=== PATIENT | female | born 1995 | race Caucasian/White ===

== ENCOUNTER 2016-07-24 15:50 | Emergency (ER) | payer MEDICAID ==
[2016-07-24 16:13] VITALS: BP 120/63; PULSE 62; RESP 18; TEMP 98.1; O2SAT 97
--- NOTE | 2016-07-24 17:53 | UCPHY ---
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 Review of systems General no fever no chills no weakness HEENT no eye pain no eye discharge. No eye redness, no sore throat Respiratory no cough, no shortness of breath Cardiac no chest pain, no peripheral edema GI no abdominal pain, no diarrhea, no constipation, no nausea, no vomiting no flank pain, no hematuria, no dysuria Musculoskeletal positive myalgias, positive joint pain Heme no easy bruising, no easy bleeding Endo no polyuria, no polydipsia Skin no rashes, no pruritus Neuro no syncope, no dizziness, no headaches Psych is no suicidal ideation, no homicidal ideation Past Medical/Surgical History: Asthma Social History: Works as a DJ Smoking Status: Never smoked Physical Exam: Alert and oriented in no acute distress nontoxic appearance, afebrile Atraumatic normocephalic Neck no JVD Lungs clear to auscultation, no respiratory distress Heart regular rate and rhythm Extremities no cyanosis clubbing edema Right wrist-no evidence ecchymosis, no swelling, diffusely tender, full range of motion of digits wrist and elbow as well as shoulder A good capillary refill, sensation intact Constitutional: Initial Vital Signs Temperature (C) 36.7 C 07/24/16 16:10 Heart Rate 62 07/24/16 16:10 Respiratory Rate 18 07/24/16 16:10 Blood Pressure 120/63 07/24/16 16:10 O2 Sat (%) 97 07/24/16 16:10 O2 Delivery Mode Room Air Allergies/Adverse Reactions: adhesive [Adhesive] Allergy (Intermediate, Verified 11/22/15 17:21) RASH/IRRITATION Home Medications: Medication Instructions Recorded Naproxen 09/04/15 Albuterol 11/22/15 Medical Decision Making - Data Points Medications Given: Discontinued Medications Ibuprofen (Motrin) 600 mg PO ONCE ONE Stop: 07/24/16 17:57 Last Admin: 07/24/16 18:07 Dose: 600 mg Departure - Departure Disposition: Home, Routine, Self-Care Clinical Impression: Right wrist sprain Condition: Good Instructions: Wrist Sprain (ED) Additional Instructions: Rest, ice, elevate may take ibuprofen or acetaminophen as needed for pain. If wrist is not improving follow up with Orthopedics. Referrals: NONE *PRIMARY CARE P,. [Primary Care Provider] - As per Instructions Galen Buckley MD [Medical Doctor] - As per Instructions - PQRS PQRS Measurement: na
[2016-07-24] MEDS ORDERED: IBUPROFEN 200 MG TAB PO ONE (17:56)
== END 2016-07-24 18:08 | disposition home or self-care (01) ==
LOC: CED 15:50
DX: S63.501A Unspecified sprain of right wrist, initial encounter (principal); W01.0XXA Fall on same level from slipping, tripping and stumbling without subsequent striking against object, initial encounter
CPT/HCPCS: 73110-PO; G0463-PO; L3908

== ENCOUNTER → 2016-12-25 | Outpatient (CLI) | payer MEDICAID | LOC: CIMAGING 16:37 | PROVIDERS: ATTEND Family Medicine | DX: M25.531 Pain in right wrist (principal) | CPT/HCPCS: 73110-PO ==

== ENCOUNTER → 2017-01-11 | Outpatient (CLI) | payer MEDICAID | LOC: CIMAGING 15:52 | PROVIDERS: ATTEND Family Medicine | DX: S69.91XA Unspecified injury of right wrist, hand and finger(s), initial encounter (principal) | CPT/HCPCS: 73110-PO ==

== ENCOUNTER → 2017-05-01 | Outpatient (CLI) | payer MEDICAID | LOC: CIMAGING 12:40 | PROVIDERS: ATTEND Family Medicine | DX: M79.642 Pain in left hand (principal); Z3A.17 17 weeks gestation of pregnancy | CPT/HCPCS: 73130-PO ==

== ENCOUNTER 2017-08-27 05:43 | Observation (INO) | payer MEDICAID ==
[2017-08-27] MEDS ORDERED: ONDANSETRON 4 MG/2 ML VIAL IVP PRN (06:24)
[2017-08-27] MEDS ORDERED: DIPHENOXYLATE/ATROPINE LOMOTIL 1 TAB PO PRN (06:24)
[2017-08-27 06:26] LABS: PLATELET COUNT 384 10^3/uL (150-400)
[2017-08-27] MEDS ORDERED: LR 1,000 ML IV ONE (06:30)
[2017-08-27] MEDS ORDERED: LR 1,000 ML IV SCH (06:30)
--- NOTE | 2017-08-27 07:52 | OBPROG ---
Labor Progress Note Assessment/Plan: Assessment:cat 1 fhr no further vomiting or diarrhea resting specific gravity 1.020 / trace protein , no ketones #2 iv fluid to infuse before discharge denies pain denies leaking bleeding and cramping feeling positive movement encouraged bland clear liquid to dry diet x 24h elevated white count 16 anemic taking iron routinely will hold PNV and iron for a few days until feeling better afebrile vs wnl Plan:discharge to home with instructions fu in the office on sunday call for appt. Discussed reasons to return before. Will send home with kevin ODT for nausea and vomiting. Patient and family ok with POC 08/27/17 07:48 08/27/17 07:53 Subjective/Intrapartum Course: 08/27/17 07:47 Resting quietly , snoring. Per mom this is a change. Objective: 08/27/17 06:15 08/27/17 06:15 - FHR Assessment Montiel FHR (bpm): 135 FHR Pattern Variability: Moderate FHR Category: 1 - Physical Exam General Appearance: WD/WN, alert, no apparent distress Respiratory: chest non-tender, lungs clear, normal breath sounds Cardiac/Chest: regular rate, rhythm Abdomen: normal bowel sounds Extremities: normal range of motion, North's sign (negaive bilaterally) DTR- Lower Extremities: Knee (R): 1+, Knee (L): 1+ (no clonus) Skin: normal color, warm/dry Neuro/Psych: no motor/sensory deficits, alert, normal mood/affect, oriented x 3 ICD10 Worksheet Patient Problems: Problems Problem Status Onset 34 weeks nausea and diarrhea Acute
--- NOTE | 2017-08-27 08:37 | GHP ---
[f rep st] HISTORY AND PHYSICAL DATE OF ADMISSION: 08/27/2017 SUBJECTIVE: Patient is a 21-year-old, 1, para 0, with an EDC of 10/08/2017, which gives her a gestational age of 34 weeks, came in with complaint of nausea, vomiting, diarrhea since 08/27/2016 at midnight as well as decreased movement. Patient has just recently transferred care to [facility]. PAST MEDICAL HISTORY: Patient states that she has a history of hypothyroid, PTSD, anxiety, obsessive -compulsive disorder, as well as previous history of Hodgkin lymphoma, which has been in remission si nce she was 12 years old. PAST SURGICAL HISTORY: Benign. MEDICATIONS: Levothyroxine 25 mcg, vitamins, and iron 1 p.o. daily. HISTORY: Previous previa that has since resolved, anemia. SOCIAL HISTORY: A 21-year-old primip. Lives with her mother. Denies tobacco use. Denies drug use. GYNECOLOGICAL HISTORY: Benign. PHYSICAL ASSESSMENT: GENERAL: Patient is very sleepy. Denies leaking, bleeding, or cramping. Stat es now feeling positive movement. LUNGS: Clear bilaterally. ABDOMEN: Bowel sounds are posit obdulia in all 4 quadrants. HEART: Heart rate is regular and rhythmic. NEUROLOGIC: DTRs are 1+ bilate rally with no clonus. Homans sign is negative. PELVIC: No contractions noted on the monitor. Yadira ent states was feeling intestinal cramping when she first came in. Multiple bouts of diarrhea. Mult iple bouts of vomiting since midnight. Zofran 4 mg given IV at 07:04. 1 L of fluid has infused with the 2nd one running at 250 per hour. Patient states now feeling better and feeling routine mo vement. LABS: WBCs are 16.4, hematocrit is 32.6. All other labs are within normal limits. Patient is afebr ile. PLAN OF CARE: Zofran ODT p.r.n. for nausea and vomiting. Follow up on Sunday for reassura nce. Verbalized understandings of reasons to return earlier; leaking, bleeding, cramping, baby not m oving, continued diarrhea, nausea and vomiting. For 24 hours, a bland diet as well as clear liquid. Patient and mother verbalized understanding of plan of care. /[id number]/MODL
== END 2017-08-27 09:30 | disposition home or self-care (01) ==
LOC: FLD 05:43
PROVIDERS: ADMIT Obstetrics & Gynecology; ATTEND Obstetrics & Gynecology
DX: O21.2 Late vomiting of pregnancy (principal); O99.89 Other specified diseases and conditions complicating pregnancy, childbirth and the puerperium; Z3A.34 34 weeks gestation of pregnancy; Z85.71 Personal history of Hodgkin lymphoma
CPT/HCPCS: J2405

== ENCOUNTER 2017-09-07 18:58 | Observation (INO) | payer MEDICAID ==
--- NOTE | 2017-09-07 20:52 | SOAPPROG ---
SOAP Progress Note Assessment/Plan: Assessment: 21 yo G1 at 35w4d by 7 w US with abd and back pain, a small amount of spotting - all of which has resolved. No other signs of labor (2 ctxns in 1 hour), no cervical dilation. No ssx UTI. monitoring was reassuring. Plan: DC home. labor precautions reviewed. Suggest belly support belt. FU in office as scheduled in next week. 09/07/17 20:47 Subjective: Pt noted low back pain and intermittent abdominal pain, originally started at 0400, then resolved during the day, and started again late this afternoon. Currently, since she has been here over an hour, all of her discomfort has resolved. She did have a small amount of spotting late this afternoon, but none on her underwear here and is not wearing a pad. Good movement. Here with her mom and grandmother - who mention she is developmentally delayed in outside of the patient's room. Objective: 37.1 100 127/80 gen - pleasant gravid female in NAD CV - RRR chest - CTAB abd - soft, gravid, obese, nontender, no rebound or guarding. ext - 1+ edema, no calf tenderness SVE - Cl / thick / high / anterior, no blood on glove after check, no evidence of any bleeding on perineum. FHR - reactive, Cat 1, mod variability, no decels toco - 2 contractions in 1 hour - Time Spent With Patient Time Spent With Patient: 15 min spent with patient - face to face - Pending Discharge Pending Discharge Within 24 Hours: No Pending Discharge Within 48 Hours: No Pending Discharge Date: 09/07/17 Pending Discharge Time: 21:02 Physical Exam - Physical Exam EENT: PERRL/EOMI Neck: non-tender Respiratory: lungs clear Cardiac/Chest: regular rate, rhythm Skin: normal color Neuro/Psych: alert, normal mood/affect ICD10 Worksheet Patient Problems: Problems Problem Status Onset Abdominal pain during in third trimester Acute Low back pain during in third trimester Acute Low back pain during in third trimester Acute - ICD10 Problem Qualifiers (1) Low back pain during in third trimester (2) Low back pain during in third trimester (3) Abdominal pain during in third trimester
== END 2017-09-07 21:07 | disposition home or self-care (01) ==
LOC: FLD 18:58
PROVIDERS: ADMIT Hospitalist; ATTEND Hospitalist
DX: M54.5 Low back pain (principal); R10.9 Unspecified abdominal pain; R11.2 Nausea with vomiting, unspecified; Z3A.35 35 weeks gestation of pregnancy
CPT/HCPCS: 59025; G0378

== ENCOUNTER 2017-09-23 18:25 | Emergency (ER) | payer MEDICAID ==
--- NOTE | 2017-09-23 20:10 | EDPHY ---
H & P Time Seen by Provider: 09/23/17 18:45 HPI/ROS: CHIEF COMPLAINT: Right wrist pain History by patient HISTORY OF PRESENT ILLNESS: 21-year-old right-handed 38 week woman presents after she to in the day [place] at a movie theater landing on her right outstretched hand and also then rolling onto her left side. Initially she had some mild left upper quadrant pain. This has resolved since arrival here but she still complains of persistent right hand and wrist pain. She has had some ongoing persistent swelling of both her hands since she has been . She does not feel like his hands are more swollen than before. She denies hitting her head or any trauma trauma. She has felt the baby move since fall several times. There has been no vaginal discharge or bleeding. REVIEW OF SYSTEMS: As in HPI, and all other systems reviewed and are negative Smoking Status: Never smoked Physical Exam: General Appearance: Alert and no distress. Obese Head: Normocephalic, atraumatic Eyes: Pupils equal and round no injection. Extraocular movements are intact. Abdomen: Positive obese, gravid, soft, nondistended, nontender Musculoskeletal: Neck is supple and nontender. Extremities: Bilateral mild hand swelling, right wrist with full range of motion, positive right radial styloid tenderness, positive right snuffbox tenderness, no ulnar styloid tenderness, no metacarpal tenderness, patient has full range of motion of all her fingers and her right elbow, distal sensation is intact, distal cap refills less than 2 sec, radial pulses 2+ and equal to the left. Skin: No rashes or lesions except as described above. Constitutional: Initial Vital Signs Temperature (C) 36.6 C 09/23/17 18:42 Heart Rate 103 H 09/23/17 18:42 Respiratory Rate 20 09/23/17 18:42 Blood Pressure 128/78 H 09/23/17 18:42 O2 Sat (%) 97 09/23/17 18:42 O2 Delivery Mode Room Air Allergies/Adverse Reactions: adhesive [Adhesive] Allergy (Intermediate, Verified 11/22/15 17:21) RASH/IRRITATION Home Medications: Medication Instructions Recorded Iron 1 tab PO DAILY 09/07/17 Levothyroxine [Synthroid 25 mcg 1 tab PO DAILY 09/07/17 (*)] 1 tab PO DAILY 09/07/17 MDM/Departure - MDM Imaging Results: Imaging Impressions Wrist X-Ray 09/23/17 18:44 Impression: Nothing acute identified. ED Course/Re-evaluation: 21-year-old woman presents with right wrist pain after a fall who is also 38 weeks and had some initial mild left abdominal pain but none now an unremarkable exam. I performed a bedside screening ultrasound which showed active movements and normal heart rate. Patient was shielded appropriately an x-ray was obtained of her right wrist including scaphoid views which was read as negative by the radiologist. On re-examine the patient had persistent snuffbox tenderness and therefore we will treat her clinically as a scaphoid fracture with a thumb spica splint and of follow-up x-ray. I discussed with the patient and her mother who understand agreeable to this plan. - Depart Disposition: Home, Routine, Self-Care Clinical Impression: Scaphoid fracture, wrist, closed Qualifiers: Encounter type: initial encounter Scaphoid bone location: unspecified portion of scaphoid Fracture alignment: nondisplaced Laterality: right Qualified Code(s) : S62.001A - Unspecified fracture of navicular [scaphoid] bone of right wrist, initial encounter for closed fracture Condition: Good Instructions: Scaphoid Fracture (ED) Additional Instructions: You were seen by Dr. Anna Daly today. Your x-ray today showed no evidence of fracture however a fracture of the scaphoid bone which is where your tender can be missed. We have placed in a thumb spica splint which she should wear until your bones have been cleared by repeat x-ray in 2 weeks or other imaging study. Please follow up with her primary care physician did discuss the best test for you. You may take Tylenol for pain and ice her wrist for pain. Return for any worsening or new concerns. Referrals: Shawna Menezes DO [Primary Care Provider] - As per Instructions
[2017-09-23 20:14] VITALS: BP 98/63
== END 2017-09-23 20:25 | disposition home or self-care (01) ==
LOC: CED 18:25
DX: O9A.213 Injury, poisoning and certain other consequences of external causes complicating pregnancy, third trimester (principal); S62.001A Unspecified fracture of navicular [scaphoid] bone of right wrist, initial encounter for closed fracture; Z3A.38 38 weeks gestation of pregnancy; W10.8XXA Fall (on) (from) other stairs and steps, initial encounter
CPT/HCPCS: 73110-PO; L3807

== ENCOUNTER 2017-09-28 20:30 | Observation (INO) | payer MEDICAID | END 2017-09-28 22:28 | disposition home or self-care (01) | LOC: FLD 20:30 | PROVIDERS: ADMIT Obstetrics & Gynecology; ATTEND Obstetrics & Gynecology | DX: Z34.03 Encounter for supervision of normal first pregnancy, third trimester (principal) | CPT/HCPCS: 59025; G0378 ==

== ENCOUNTER 2017-10-06 23:42 | Observation (INO) | payer MEDICAID ==
--- NOTE | 2017-10-07 00:57 | PDGENHP ---
History and Physical History and Physical: care: [facility] HPI: Patient is a 21yo with IUP@39-6wks that presents to L&D with complaints of no movement x 3 days. She reports ?LOF @1800- that was clear, she denies any leaking since arrival to unit. She denies any regular or intense contractions but does report some cramping. She denies any VB. She denies any headaches, visual changes, epigastric pain. EDC: 10/08/17 which is based on LMP: which is known and consistent with Ultrasound at weeks. Her is complicated by: - hypothyroid- on meds - developmental delays - h/o hodgkins lymphoma - LGSIL - Rubella NI - elevated BMI HISTORY: Previous OB history: G1 Past medical history:developmental delays, hypothyroid, h/o Hodgkins lymphoma, ADHD, anxiety Past surgical history:port placement Medication: PNV, levothyroxine, Allergies (list reaction): NKDA LABS: Rh: POS ABS: Neg Rubella: NI HbsAg: NR HIV: NR VDRL: NR 1hr:155- 3hr NL GC: Neg Chlamydia: Neg Pap: Normal GBS: negative UDS: Negative PHYSICAL EXAM: Constitutional: WN, A&Ox3 HEENT: normocephalic atraumatic, supple Heart: RRR, no murmur Chest: CTA-B Abdomen: Soft, nontender, gravid SVE: 1cm- visually Spec exam: +nitrazine, neg pooling, neg valsalva, negative ferning Extremities: 2+ pedal edema, negative homans sign Neuro: grossly normal Psych: normal affect Assessment: 1) [id number] with IUP@39-6wks (7) 2) Cat 1 FHR tracing 3) No evidence of labor or SROM, amnisure negative 4) GBS Negative 5) MICHAEL 17 Plan: 1) d/c home at this time 2) keep next sched appt 10/11 3) [facility]KC And labor prec discussed
== END 2017-10-07 02:10 | disposition home or self-care (01) ==
LOC: FLD 23:42
PROVIDERS: ADMIT Advanced Practice Midwife; ATTEND Advanced Practice Midwife
DX: O36.8130 Decreased fetal movements, third trimester, not applicable or unspecified (principal); Z3A.39 39 weeks gestation of pregnancy
CPT/HCPCS: 76815; G0378

== ENCOUNTER 2017-10-07 22:13 | Observation (INO) | payer MEDICAID | END 2017-10-07 23:10 | disposition home or self-care (01) | LOC: FLD 22:13 | PROVIDERS: ADMIT Obstetrics & Gynecology; ATTEND Obstetrics & Gynecology | DX: O99.89 Other specified diseases and conditions complicating pregnancy, childbirth and the puerperium (principal); R30.0 Dysuria; Z3A.39 39 weeks gestation of pregnancy ==

== ENCOUNTER 2017-10-15 00:39 | Inpatient (IN) | payer MEDICAID ==
[2017-10-15 01:55] LABS: PLATELET COUNT 374 10^3/uL (150-400)
[2017-10-15] MEDS ORDERED: MISOPROSTOL 200 MCG TAB PO PRN (07:09)
[2017-10-15] MEDS ORDERED: LR 1,000 ML IV PRN (07:09)
[2017-10-15] MEDS ORDERED: TERBUTALINE SULFATE 1 MG/ML VIAL IV PRN (07:09)
[2017-10-15] MEDS ORDERED: OXYTOCIN/RINGERS LACTATE 1,000 ML IV PRN (07:09)
[2017-10-15] MEDS ORDERED: IBUPROFEN 600 MG TAB PO PRN (07:09)
[2017-10-15] MEDS ORDERED: AMMONIA AROMATIC 1 EACH AMP IH PRN (07:09)
[2017-10-15] MEDS ORDERED: EPSOM SALT 454 GM TP PRN (07:09)
[2017-10-15] MEDS ORDERED: OLIVE OIL 118 ML BTL MISC PRN (07:09)
[2017-10-15] MEDS ORDERED: LIDOCAINE 1% 300 MG/30 ML SDV SC PRN (07:09)
[2017-10-15] MEDS ORDERED: fentaNYL 200 MCG, BUPIVACAINE 0.5% 20 ML in NS 100 ML EP SCH (09:00)
[2017-10-15] MEDS ORDERED: ONDANSETRON 4 MG/2 ML VIAL IVP PRN (09:39)
[2017-10-15] MEDS ORDERED: PHENYLEPHRINE HCL 100 MCG/ML SYR IVP PRN (09:39)
[2017-10-15] MEDS ORDERED: NALOXONE HCL 0.4 MG/ML INJ IVP PRN (09:39)
--- NOTE | 2017-10-15 09:44 | PREANESOB ---
Obstetric Pre-Anesthesia Info - General Info : 1 Para: 0 RENATA: 10/08/17 Gestational Age: 41 week(s) and 0 day(s) - Info Status: Montiel Monitors: External - Labor Status Cervical Dilation per last OB SVE: 5 Amniotic Fluid Color: Clear PIH: No Magnesium Sulfate in Use: No Labor Epidural: Proposed Anesthesia ROS: Back pain during - no treatments. Hypothyroid on Synthroid. Asthma, uses occasional rescue inhaler, use less during . 8-9 years post remission from Hodgkin's lymphoma. Allergies/Adverse Reactions: Allergy/AdvReac Type Severity Reaction Status Date / Time adhesive [Adhesive] Allergy Intermediate RASH/IRRITA Verified 09/28/17 21:02 TION latex Allergy Verified 09/28/17 21:02 Home Medications: Medication Instructions Recorded Iron 1 tab PO DAILY 09/07/17 Levothyroxine [Synthroid 25 mcg 1 tab PO DAILY 09/07/17 (*)] 1 tab PO DAILY 09/07/17 Visit Medications: Generic Name Dose Route Start Last Admin Trade Name Freq PRN Reason Stop Dose Admin Ammonia (Aromatic Spirit) 1 each 10/15/17 07:09 Ammonia Aromatic IH 10/25/17 07:08 ONCE PRN Fainting Lactated Ringer's 1,000 mls @ 0 mls/hr 10/15/17 07:09 Lr IV 10/16/17 07:08 PRN PRN SEE PROTOCOL CONDITIONS Protocol Per Protocol Oxytocin/Lactated Ringer's 1,000 mls @ 999 mls/hr 10/15/17 07:09 Pitocin 20 Units/Lr (Premix) IV PRN PRN Post bleeding Fentanyl 200 mcg/ Bupivacaine 100 mls @ 0 mls/hr 10/15/17 09:00 10/15/17 09: 30 HCl 20 ml/ Sodium Chloride EP 10/25/17 08:59 100 mls CONT LATRICIA Administration Protocol As Directed Ibuprofen 600 mg 10/15/17 07:09 Motrin PO ONCE PRN post , pain Lidocaine HCl 300 mg 10/15/17 07:09 Lidocaine Hcl 1% SC 04/13/18 07:08 ONCE PRN episiotomy Magnesium Sulfate 454 gm 10/15/17 07:09 Epsom Salt TP 04/13/18 07:08 Q1H PRN perineal discomfort Misoprostol 800 - 1,000 mcg 10/15/17 07:09 Cytotec PO 04/13/18 07:08 ONCE PRN Vaginal Atony/Bleeding [place] Oil 118 ml 10/15/17 07:09 Sweet Oil MISC 04/13/18 07:08 ONCE PRN perineal massage Terbutaline Sulfate 0.25 mg 10/15/17 07:09 Brethine IV 04/13/18 07:08 ONCE PRN Tachysystole - Anesthesia History Response to Local Anesthetics: Normal Anesthesia & Operative History: No Prior Problems Family Anesthesia History: Other (Specify) (Family members take "a long time to come out" of general anesthesia. No MH known.) - Vital Signs Latest Vital Signs (Nursing): See RN flowsheet for VS. Reviewed prior to epidural placement. Height/Weight (Nursing): Height 187.96 cm Weight: 285 kg (morbidly obese) - Focused Exam Mallampati Score: Class 2 Cardiovascular: regular rate and rhythym Labs: 10/15/17 01:35 10/15/17 01:35 Patient ABO/Rh B POSITIVE 10/15/17 01:35 Uric Acid 4.9 mg/dL (2.5-6.8) 10/15/17 01:35 Total Bilirubin 0.3 mg/dL (0.1-1.4) 10/15/17 01:35 Conjugated Bilirubin 0.2 mg/dL (0.0-0.5) 10/15/17 01:35 Unconjugated Bilirubin 0.1 mg/dL (0.0-1.1) 10/15/17 01:35 AST 21 IU/L (14-46) 10/15/17 01:35 ALT 36 IU/L (9-52) 10/15/17 01:35 Lactate Dehydrogenase 439 IU/L (313-618) 10/15/17 01:35 - Plan Anesthetic Plan: LUCIANO for vaginal delivery. Consent Signed and on Chart: Yes Urgent/Emergent Case: Ke tillman completed preop but documented later for safe timely pt care
[2017-10-15] MEDS ORDERED: LR 500 ML IV SCH (10:00)
[2017-10-15] MEDS ORDERED: fentaNYL 2MCG/ML/BUP 0.1% RTU 100 ML EP SCH (10:00)
[2017-10-15] MEDS ORDERED: OXYTOCIN 10 UNIT/ML VIAL ONE (11:32)
--- NOTE | 2017-10-15 11:35 | OBPROG ---
Labor Progress Note Assessment/Plan: Assessment: Plan: Subjective/Intrapartum Course: 10/15/17 11:33 patient is comfortable with epidural. sve - complete. patient is feeling occasional rectal pressure with contractions. will begin pushing when cart set up Objective: 10/15/17 01:35 10/15/17 01:35 Patient ABO/Rh B POSITIVE 10/15/17 01:35 Uric Acid 4.9 mg/dL (2.5-6.8) 10/15/17 01:35 Total Bilirubin 0.3 mg/dL (0.1-1.4) 10/15/17 01:35 Conjugated Bilirubin 0.2 mg/dL (0.0-0.5) 10/15/17 01:35 Unconjugated Bilirubin 0.1 mg/dL (0.0-1.1) 10/15/17 01:35 AST 21 IU/L (14-46) 10/15/17 01:35 ALT 36 IU/L (9-52) 10/15/17 01:35 Lactate Dehydrogenase 439 IU/L (313-618) 10/15/17 01:35 - SVE Dilation (cm): 10 Effacement (%): 100 Station: +2 Membranes: SROM Amniotic Fluid Color: Clear Dilation Complete Date: 10/15/17 - FHR Assessment Montiel FHR (bpm): 120 FHR Pattern Variability: Moderate FHR Category: 1 Oxytocin Orders Assessment - Pre-Induction/Augmentation Assessment Gestational Age: 41 week(s) and 0 day(s) ICD10 Worksheet Patient Problems: Problems Problem Status Onset Abdominal pain during in third trimester Acute Low back pain during in third trimester Acute Low back pain during in third trimester Acute
--- NOTE | 2017-10-15 12:08 | OBDEL ---
Info Type: Vaginal Presentation at Delivery: Vertex L&D Analgesia/Anesthesia Type: Epidural GBS+: No Intrapartum Medications: Generic Name Dose Route Start Last Admin Trade Name Freq PRN Reason Stop Dose Admin Lactated Ringer's 1,000 mls @ 0 mls/hr 10/15/17 07:09 10/15/17 08:30 Lr IV 10/16/17 07:08 1,000 mls PRN PRN Administration SEE PROTOCOL CONDITIONS Protocol Per Protocol Fentanyl 200 mcg/ Bupivacaine 100 mls @ 0 mls/hr 10/15/17 09:00 10/15/17 09: 30 HCl 20 ml/ Sodium Chloride EP 10/25/17 08:59 100 mls CONT LATRICIA Administration Protocol As Directed Discontinued Medications Generic Name Dose Route Start Last Admin Trade Name Freq PRN Reason Stop Dose Admin Oxytocin/Lactated Ringer's 1,000 mls @ 999 mls/hr 10/15/17 07:09 10/15/17 11: 55 Pitocin 20 Units/Lr (Premix) IV 1,000 mls PRN PRN Administration Post bleeding - Hospital Course Intrapartum: 10/15/17 11:33 patient is comfortable with epidural. sve - complete. patient is feeling occasional rectal pressure with contractions. will begin pushing when cart set up Indications for Delivery: Spontaneous Labor Vaginal Delivery - Delivery Provider Delivery Physician/CNM: Karina Sheehan - Labor and Delivery Onset of Contractions Date: 10/15/17 Onset of Contractions Time: 07:00 Onset of Contractions Type: Spontaneous Rupture of Membranes Date: 10/15/17 Rupture of Membranes Time: 06:45 Rupture of Membranes Type: Spontaneous Amniotic Fluid Color: Clear Dilation Complete Date: 10/15/17 Dilation Complete Time: 11:28 Placenta Delivery Date: 10/15/17 Placenta Delivery Time: 11:50 Total Hours of Labor: 4 Laceration: 2nd Degree Repair: 3-0 Vaginal Sponge Count Correct: Yes Vaginal Needle Count Correct: Yes Vaginal Sweep Performed: No EBL: [address] [place] Data RENATA: 10/08/17 Gestational Age: 41 week(s) and 0 day(s) Montiel Delivery Date: 10/15/17 Delivery Time: 11:45 Sex of Infant: Male Score (1 Min): 8 Score (5 Min): 9 ICD10 Worksheet Patient Problems: Problems Problem Status Onset Abdominal pain during in third trimester Acute Low back pain during in third trimester Acute Low back pain during in third trimester Acute
[2017-10-15] MEDS ORDERED: HYDROCORTISONE 0.5% CREAM TP PRN (12:11)
[2017-10-15] MEDS ORDERED: SIMETHICONE 80 MG TAB CHEW PO PRN (12:11)
--- NOTE | 2017-10-15 13:15 | POSTANESTH ---
Post Anesthetic Evaluation Cardiovascular Status: Normal, Stable Respiratory Status: Normal, Stable Level of Consciousness/Mental Status: Can Participate in Eval, Alert and Oriented Pain Control: Adequate, Prn Tx Ordered Nausea/Vomiting Control: Adequate, Prn Tx Ordered Complications Possibly Related to Anesthesia: None Noted Notes: LE still numb and tingling from epidural infusion, but resolving. Pt able to move LE weakly.
[2017-10-15] MEDS: IBUPROFEN 600 MG TAB PO PRN ×2 (14:51→21:22)
[2017-10-16] MEDS: IBUPROFEN 600 MG TAB PO PRN ×3 (04:39→23:22)
[2017-10-16] MEDS: LEVOTHYROXINE 25 MCG TAB PO SCH (04:39)
[2017-10-16] MEDS: DOCUSATE SODIUM 100 MG CAP PO PRN ×2 (09:25→23:23)
--- NOTE | 2017-10-16 09:45 | PDMN ---
Medical Necessity Medical necessity: Pt meets IP criteria; admit for Labor & Delivery
--- NOTE | 2017-10-16 10:19 | OBPP ---
Progress Note Assessment/Plan: Assessment: 21 y/o s/p PPD # 1 FOB not involved - pt. has restraining order against him Patients mother is primary support person Plan: Routine pp care Social work consult today support as needed Oral pain meds prn Encourage activity Plan d/c home tomorrow 10/16/17 11:03 Subjective/ Course: 10/16/17 11:06 Patient is doing well this morning. Reports lochia to be light, pain controlled with oral medication, tolerating regular diet and voiding. is going well with support. Patients mother is at the bedside and supportive. Restraining order against FOB. 10/16/17 11:08 Objective: 10/15/17 01:35 10/15/17 01:35 Patient ABO/Rh B POSITIVE 10/15/17 01:35 Uric Acid 4.9 mg/dL (2.5-6.8) 10/15/17 01:35 Total Bilirubin 0.3 mg/dL (0.1-1.4) 10/15/17 01:35 Conjugated Bilirubin 0.2 mg/dL (0.0-0.5) 10/15/17 01:35 Unconjugated Bilirubin 0.1 mg/dL (0.0-1.1) 10/15/17 01:35 AST 21 IU/L (14-46) 10/15/17 01:35 ALT 36 IU/L (9-52) 10/15/17 01:35 Lactate Dehydrogenase 439 IU/L (313-618) 10/15/17 01:35 Temp Pulse Resp BP Pulse Ox 36.8 C 101 H 18 121/71 H 94 10/15/17 20:00 10/15/17 20:00 10/15/17 20:00 10/15/17 20:00 10/15/17 20:00 VSS Respirations unlabored Extremities with minimal edema Lochia scant Fundus firm Perineum healing well - well approximated Nipples intact Uterine Position/Fundal Height: Umbilicus -1 Uterine Tone: Firm Physical Exam - Physical Exam EENT: PERRL/EOMI Neck: non-tender Respiratory: chest non-tender, normal breath sounds Cardiac/Chest: normal peripheral pulses Extremities: normal range of motion Skin: normal color, warm/dry Neuro/Psych: no motor/sensory deficits, alert, normal mood/affect, oriented x 3
[2017-10-16] MEDS: FERROUS SULFATE 325 MG TAB PO SCH (11:19)
--- NOTE | 2017-10-16 17:15 | ASMTLACE ---
LACE Length of stay for Answers: 2 days current admission Acuity / Level of Answers: Yes Care: Did the patient have an inpatient admission? Comorbidities - select Answers: Other Notes: Childbirth all that apply # of Emergency department Answers: 1-2 visits in the last 6 months Score: 7 Date Signed: 10/16/2017 12:37 PM Electronically Signed By:Dotty Diallo LCSW
--- NOTE | 2017-10-16 17:15 | ASMTCASEMG ---
Living Arrangements What is your living Answers: With One Parent arrangement? Who do you live with? Type Of Residence What kind of residence do Answers: House you live in? Discharge Plan Comments Coordination Status Comments Notes: Patient is a 21yo single female who was admitted for labor and delivery of her son. Patient has a restraining order against the baby's father which was placed in the baby's chart. Spoke with patient and her family at the nurse's request. Patient plans to stay home with her new son until he is older and then she will look for a job. Patient's mother, the baby's grandmother works a slot shift supervisor and can help with infant care during the day. The family is already signed up for WIC and Mindy has applied for SNAP (nutrition assistance) and TANIFF programs that will help with getting child support through the court systems so they do not have to deal with the baby's father. They have not chosen a care associate yet because they are deciding between a new Dr. and their current PCP whom they like and trust.Patient has a large extended family here and feels she has adequate support. Sabina fofana [facility] is adding the to their Medicaid plan. CM available if further resources are needed. Date Signed: 10/16/2017 12:35 PM Electronically Signed By:Dotty Diallo LCSW
[2017-10-17] MEDS: HYDROCODONE/APAP 5/325 TAB PO PRN ×2 (02:06→05:54)
[2017-10-17] MEDS: IBUPROFEN 600 MG TAB PO PRN ×2 (04:44→11:16)
[2017-10-17] MEDS: LEVOTHYROXINE 25 MCG TAB PO SCH (05:55)
[2017-10-17] MEDS ORDERED: MEASLES,MUMPS&RUBELLA VACC/PF 0.5 ML VIAL SC ONE (10:11)
[2017-10-17 10:25] VITALS: BP 118/72
[2017-10-17] MEDS: FERROUS SULFATE 325 MG TAB PO SCH (11:02)
[2017-10-17] MEDS: DOCUSATE SODIUM 100 MG CAP PO PRN (11:15)
--- NOTE | 2017-10-17 11:29 | OBPP ---
Progress Note Assessment/Plan: Assessment: 21 y/o s/p PPD # 2 FOB not involved - pt. has restraining order against him Patients mother is primary support person Lower leg edema Plan: Routine pp care Social work consult yest completed support as needed Oral pain meds prn Encourage activity Plan d/c home today MMR prior to dc LL edema - no clinical s/sx of DVT, no need for US currently Subjective/ Course: 10/16/17 11:06 Patient is doing well this morning. Reports lochia to be light, pain controlled with oral medication, tolerating regular diet and voiding. is going well with support. Patients mother is at the bedside and supportive. Restraining order against FOB. 10/16/17 11:08 10/17/17 11:26 Doing well, had a good night, ready for home today. Qs re MMR vaccine. Objective: 10/15/17 01:35 10/15/17 01:35 Patient ABO/Rh B POSITIVE 10/15/17 01:35 Uric Acid 4.9 mg/dL (2.5-6.8) 10/15/17 01:35 Total Bilirubin 0.3 mg/dL (0.1-1.4) 10/15/17 01:35 Conjugated Bilirubin 0.2 mg/dL (0.0-0.5) 10/15/17 01:35 Unconjugated Bilirubin 0.1 mg/dL (0.0-1.1) 10/15/17 01:35 AST 21 IU/L (14-46) 10/15/17 01:35 ALT 36 IU/L (9-52) 10/15/17 01:35 Lactate Dehydrogenase 439 IU/L (313-618) 10/15/17 01:35 Temp Pulse Resp BP Pulse Ox 36.4 C 77 16 118/72 94 10/17/17 10:24 10/17/17 10:24 10/17/17 10:24 10/17/17 10:24 10/17/17 10:24 Uterine Position/Fundal Height: At Umbilicus Uterine Tone: Firm Physical Exam - Physical Exam General Appearance: WD/WN, alert, no apparent distress Abdomen: non-tender, soft Extremities: swelling (+3 non-pitting edema to the thing Bilat - no tenderness, neg homans sign, no assym)
--- NOTE | 2017-10-17 11:32 | OBGCSDC ---
General Delivery Information - General Info : 1 Para: 1 Abortions: 0 Type: Vaginal L&D Analgesia/Anesthesia Type: Epidural Admission Date: 10/15/17 Labs: Patient ABO/Rh B POSITIVE 10/15/17 01:35 Hct 33.6 % (38.0-47.0) L 10/15/17 01:35 - Hospital Course Intrapartum: 10/15/17 11:33 patient is comfortable with epidural. sve - complete. patient is feeling occasional rectal pressure with contractions. will begin pushing when cart set up : 10/16/17 11:06 Patient is doing well this morning. Reports lochia to be light, pain controlled with oral medication, tolerating regular diet and voiding. is going well with support. Patients mother is at the bedside and supportive. Restraining order against FOB. 10/16/17 11:08 10/17/17 11:26 Doing well, had a good night, ready for home today. Qs re MMR vaccine. Vaginal - Delivery Provider Delivery Physician/CNM: Karina Sheehan - Diagnosis Labor: Spontaneous Rupture of Membranes Type: Spontaneous Amniotic Fluid Color: Clear Laceration: 2nd Degree Repair: 3-0 - Delivery EBL: 200 Data RENATA: 10/08/17 Gestational Age: 41 week(s) and 2 day(s) Montiel Delivery Date: 10/15/17 Delivery Time: 11:45 Sex of Infant: Male [place] Weight (gm): 4116 g Score (1 Min): 8 Score (5 Min): 9 Discharge Information - Discharge Information Condition: Good Instruction/Follow Up: Four Weeks, Six Weeks
== END 2017-10-17 14:20 | disposition home or self-care (01) | DRG 560 ==
LOC: EEVIPCON 00:39 → FLD 00:39 → OBSVTOIN 01:56 → FOB 17:23
PROVIDERS: ADMIT Obstetrics & Gynecology; ATTEND Obstetrics & Gynecology
DX: O36.8130 Decreased fetal movements, third trimester, not applicable or unspecified (principal); E03.9 Hypothyroidism, unspecified; Z37.0 Single live birth; Z3A.41 41 weeks gestation of pregnancy; O70.1 Second degree perineal laceration during delivery; O99.284 Endocrine, nutritional and metabolic diseases complicating childbirth; O99.52 Diseases of the respiratory system complicating childbirth; J45.909 Unspecified asthma, uncomplicated; Z85.71 Personal history of Hodgkin lymphoma
CPT/HCPCS: G0378; J2590; J3010

== ENCOUNTER 2017-12-08 23:08 | Emergency (ER) | payer MEDICAID ==
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
[2017-12-09 01:06] VITALS: BP 116/71
== END 2017-12-09 01:07 | disposition home or self-care (01) ==
LOC: CED 23:08
DX: S63.501A Unspecified sprain of right wrist, initial encounter (principal); S63.502A Unspecified sprain of left wrist, initial encounter; S53.402A Unspecified sprain of left elbow, initial encounter; Z91.040 Latex allergy status; W22.8XXA Striking against or struck by other objects, initial encounter
CPT/HCPCS: 73080-PO; 73110-PO; A4565

== ENCOUNTER → 2018-04-07 | Outpatient (CLI) | payer MEDICAID | LOC: FIMAGING 15:03 | PROVIDERS: ATTEND Family Medicine | DX: S83.521A Sprain of posterior cruciate ligament of right knee, initial encounter (principal); M22.42 Chondromalacia patellae, left knee ==

== ENCOUNTER 2018-07-14 14:28 | Emergency (ER) | payer MEDICAID ==
[2018-07-14 14:41] VITALS: BP 120/77
[2018-07-14] MEDS ORDERED: IBUPROFEN 600 MG TAB PO ONE (14:53)
--- NOTE | 2018-07-14 15:18 | EDPHY ---
H & P Time Seen by Provider: 07/14/18 15:01 HPI/ROS: Chief complaint. Left knee and left ankle pain HPI. Patient is a 22-year-old female presents to the emergency department with 2 day history of left knee and left ankle pain. She was snowboarding in the [place] 2 days ago and fell. Trying to get her snowboard off her foot she twisted around and sustained pain to the left knee and left ankle. Hurts to walk. She has been using ibuprofen for pain. Denies head injury neck pain chest pain back pain abdominal pain. No injury to either arms or to the right leg. Patient had a knee injury in January 2018. She had x-rays of her knee in January that were normal. She had an MRI April 2018 that showed mild strain posterior cruciate ligament but no tear. There was also minimal chondromalacia of the patella. She had PT evaluation for her left knee on May 09. See she was discharged from PT on June 26 for failure to come for follow-up appointments. Pain is in both sides of her knee and over her patella. It is also to both sides of her ankle. ROS 10 systems were reviewed and negative with the exception of the elements mentioned in the history of present illness Past Medical/Surgical History: Asthma, chronic knee pain, Hodgkin's lymphoma is child, hypothyroid Social History: Single, nonsmoker, no alcohol Smoking Status: Never smoked Physical Exam: General Appearance: Alert well-developed female mild distress vital signs are stable Eyes: Pupils equal and round no pallor or injection. ENT, Mouth: Mucous membranes are moist. Respiratory: There are no retractions, lungs are clear to auscultation. Cardiovascular: Regular rate and rhythm. Gastrointestinal: Abdomen is soft and nontender, no masses, bowel sounds normal. Neurological: Awake and alert, sensory and motor exams grossly normal. Skin: Warm and dry, no rashes. Musculoskeletal: Neck is supple nontender. Extremities tenderness to palpation medial and lateral aspect joint lines left knee. Tenderness over the patella. No obvious swelling or deformity. No instability to stress. Also tenderness to medial and lateral aspects of the left ankle. Tenderness over the base of the 5th metatarsal. No instability to stress. Distal motor vascular sensitivity is intact. No obvious swelling or deformity Psychiatric: Patient is oriented X 3, there is no agitation. Constitutional: Initial Vital Signs Temperature (C) 37.3 C 07/14/18 14:37 Heart Rate 91 07/14/18 14:37 Respiratory Rate 18 07/14/18 14:37 Blood Pressure 120/77 07/14/18 14:37 O2 Sat (%) 94 07/14/18 14:37 O2 Delivery Mode Room Air Allergies/Adverse Reactions: adhesive [Adhesive] Allergy (Intermediate, Verified 07/14/18 14:41) RASH/IRRITATION latex Allergy (Verified 07/14/18 14:41) Medical Decision Making - Diagnostics Imaging Results: Imaging Impressions Ankle X-Ray 07/14/18 15:14 Impression: Ankle sprain. 2. Left Knee, 5 views including a sunrise view History: Pain post trauma, snowboarding injury Findings: There is a small cortical buckle involving the medial corner of the patella. No dislocation, malalignment or knee joint effusion is identified. The patella is normally located in the distal femoral groove. Impression: Possible patellar corner fracture, at the medial margin of the medial patellar facet. Correlation with the site of symptoms is recommended. Knee X-Ray 07/14/18 15:14 Impression: Ankle sprain. 2. Left Knee, 5 views including a sunrise view History: Pain post trauma, snowboarding injury Findings: There is a small cortical buckle involving the medial corner of the patella. No dislocation, malalignment or knee joint effusion is identified. The patella is normally located in the distal femoral groove. Impression: Possible patellar corner fracture, at the medial margin of the medial patellar facet. Correlation with the site of symptoms is recommended. X-ray left ankle interpreted by me is normal X-ray left knee shows possible small cortical buckle fracture on the medial corner of the patella. Procedures: Knee immobilizer and ankle Velcro splint. Patient has crutches at home. Post splint application reviewed by me and shows good anatomic position and distal motor vascular sensitivity to be intact ED Course/Re-evaluation: Re-evaluation at 3:50 p.m.. Patient is stable. She and I discussed imaging results. We discussed treatment plan including criteria for return importance of follow-up and further evaluation. She expresses understanding and agreement Differential Diagnosis: This appears to be knee and ankle sprain. Possible small cortical interruption medial aspect of patella. Otherwise no fracture dislocation of knee or ankle - Data Points Medications Given: Discontinued Medications Ibuprofen (Motrin) 600 mg PO EDNOW ONE Stop: 07/14/18 14:54 Last Admin: 07/14/18 15:42 Dose: 600 mg Departure - Departure Disposition: Home, Routine, Self-Care Clinical Impression: Left knee sprain Qualifiers: Encounter type: initial encounter Involved ligament of knee: unspecified ligament Qualified Code(s): S83.92XA - Sprain of unspecified site of left knee, initial encounter Left ankle sprain Qualifiers: Encounter type: initial encounter Involved ligament of ankle: unspecified ligament Qualified Code(s): S93.402A - Sprain of unspecified ligament of left ankle, initial encounter Condition: Good Instructions: Knee Sprain (ED), Ankle Sprain (ED) Additional Instructions: Splint on knee and ankle for 1 week. Crutches for 1 week. Ibuprofen 600 mg every 6 hr for pain Return for worsening symptoms. Follow-up with regular physician for orthopedist for continuing symptoms Referrals: Rafal Ma DO [Primary Care Provider] - 5-7 days, if not improved Anastasia Newman MD [Medical Doctor] - 5-7 days, if not improved
== END 2018-07-14 16:28 | disposition home or self-care (01) ==
LOC: CED 14:28
DX: S93.402A Sprain of unspecified ligament of left ankle, initial encounter (principal); S83.92XA Sprain of unspecified site of left knee, initial encounter; V00.311A Fall from snowboard, initial encounter; Y93.23 Activity, snow (alpine) (downhill) skiing, snowboarding, sledding, tobogganing and snow tubing; Y92.838 Other recreation area as the place of occurrence of the external cause
CPT/HCPCS: 73564-PO; 73610-PO; 99283-ER; L1830-ER; L4350-ER